=== PATIENT | female | born 1950 | race Caucasian/White ===

== ENCOUNTER 2020-06-24 04:10 | Day surgery (SDC) | payer OTHER ==
[2020-06-23 08:30] VITALS: BMI 24.3
[2020-06-24] MEDS ORDERED: MIDAZOLAM HCL 2 MG/2 ML SINGLE DOSE VIAL ONE (07:29)
[2020-06-24] MEDS ORDERED: PROPOFOL 20 ML ONE (07:29)
[2020-06-24] MEDS ORDERED: EPHEDRINE SULFATE/0.9% NACL/PF 50 MG/10 ML SYRINGE NR ONE (07:50)
[2020-06-24] MEDS ORDERED: metroNIDAZOLE 250 MG/50 ML PREMIX BAG IVPB ONE (07:52)
[2020-06-24] MEDS ORDERED: DEXAMETHASONE SOD PHOSPHATE 4 MG/1 ML VIAL ONE (08:03)
[2020-06-24] MEDS ORDERED: ONDANSETRON 4 MG/2 ML VIAL IVPUSH PRN (08:25)
[2020-06-24] MEDS ORDERED: IBUPROFEN 600 MG TABLET (FP) PO PRN (08:25)
[2020-06-24] MEDS ORDERED: oxyCODONE HCL 5 MG TABLET PO PRN ×2 (08:25→09:05)
[2020-06-24] MEDS ORDERED: IBUPROFEN 800 MG/8 ML IJ IVPB PRN (08:25)
[2020-06-24] MEDS ORDERED: ELECTROLYTE-148 SOLN 1,000 ML IV SCH (08:30)
[2020-06-24] MEDS ORDERED: DESFLURANE GAS 240 ML BOTTLE IH ONE (08:43)
[2020-06-24] MEDS ORDERED: oxyCODONE HCL 5 MG TABLET ONE (08:56)
[2020-06-24] MEDS ORDERED: LACTATED RINGERS SOLUTION 1,000 ML IV SCH (09:15)
[2020-06-24] MEDS ORDERED: KETOROLAC TROMETHAMINE 30 MG/1 ML VIAL ONE (09:16)
[2020-06-24] MEDS ORDERED: KETOROLAC TROMETHAMINE 30 MG/1 ML VIAL IVPUSH ONE (09:43)
[2020-06-24] MEDS ORDERED: ceFAZolin SODIUM 1 GM VIAL ONE (09:47)
[2020-06-24 10:08] VITALS: TEMP 97.4
[2020-06-24 12:26] VITALS: BP 116/69; PULSE 60
[2020-06-24] MEDS ORDERED: ACETAMINOPHEN 325 MG TABLET (FP) PO ONE (12:46)
== END 2020-06-24 12:27 | disposition home or self-care (01) ==
LOC: JASU-SURG 04:10
PROVIDERS: ATTEND Obstetrics & Gynecology
PROC: 0UJD8ZZ Inspection of Uterus and Cervix, Via Natural or Artificial Opening Endoscopic (ICD-10-PCS; 2020-06-24)
PROC: 0UB97ZX Excision of Uterus, Via Natural or Artificial Opening, Diagnostic (ICD-10-PCS; principal; 2020-06-24 07:30)
PROC: 0UDB7ZX Extraction of Endometrium, Via Natural or Artificial Opening, Diagnostic (ICD-10-PCS; 2020-06-24 07:30)
DX: N84.0 Polyp of corpus uteri (principal)
CPT/HCPCS: 88305-TC; 94760